=== PATIENT | male | born 1965 | race African-American/Black ===

== ENCOUNTER 2022-12-11 23:11 | Emergency (ER) | payer MEDICAID ==
[~2022-12-11] VITALS: Ht 167.6 cm; Wt 81.1 kg
[2022-12-11 23:37] VITALS: BP 126/82; PULSE 64; RESP 18; O2SAT 98
[2022-12-12 02:00] VITALS: TEMP 98.1
[2022-12-12] MEDS ORDERED: ACETAMINOPHEN 325MG TABLET PO ONE (02:00)
== END 2022-12-12 04:00 | disposition home or self-care (01) ==
LOC: ER 23:45
DX: M76.31 Iliotibial band syndrome, right leg (principal)
CPT/HCPCS: 93971; 99284